=== PATIENT | male | born 1995 | race Two or more races ===

== ENCOUNTER 2020-11-27 16:35 | Inpatient (IN) | payer MEDICAID, OTHER ==
[~2020-11-27] VITALS: Ht 167.6 cm; Wt 100.9 kg
[2020-11-27] MEDS ORDERED: RISP4TAB63 PO (18:10)
[2020-11-27] MEDS ORDERED: HYDR50CA PO (18:12)
[2020-11-27 18:21] LABS: BASOPHILS % (AUTO) 0.3 % (0.0-2.0); EOSINOPHILS % (AUTO) 0.8 % (1.0-6.0); HEMATOCRIT 42.2 % (41-53); HEMOGLOBIN 13.8 g/dL (13.5-17.5); LYMPHOCYTES # (AUTO) 2.2 K/uL (1.0-4.8); LYMPHOCYTES % (AUTO) 26.6 % (22.0-44.0); MEAN CORPUSCULAR HEMOGLOBIN 28.2 pg (26.0-34.0); MEAN CORPUSCULAR HGB CONC 32.7 G/dL (31.0-37.0); MEAN CORPUSCULAR VOLUME 86 fL (80-100); MONOCYTES # (AUTO) 0.9 K/uL (0.1-1.0); MONOCYTES % (AUTO) 10.9 % (2.0-9.0); NEUTROPHILS # (AUTO) 5.1 K/uL (1.8-7.7); NEUTROPHILS % (AUTO) 61.4 % (40.0-70.0); RED CELL DISTRIBUTION WIDTH 14.6 % (11.5-14.5)
[2020-11-27 18:38] LABS: ANION GAP 8 mmol/L (8-16); CALCIUM, TOTAL 8.5 mg/dL (8.8-10.5); CARBON DIOXIDE 27 mmol/L (22-29); CHLORIDE 105 mmol/L (98-107); CREATININE 0.73 mg/dL (0.60-1.30); GLOMERULAR FILTR. RATE CALC > 60 mL/min (>60); GLUCOSE,RANDOM 94 mg/dL (70-110); POTASSIUM 3.2 mmol/L (3.5-5.1); SODIUM SERUM 140 mmol/L (136-145); UREA NITROGEN, BLOOD 10 mg/dL (7-18)
[2020-11-27 18:42] LABS: ALANINE AMINOTRANSFERASE 59 U/L (12-78); ALBUMIN 3.7 g/dL (3.4-5.0); ALKALINE PHOSPHATASE 75 U/L (46-116); ASPARTATE AMINOTRANSFERASE 45 U/L (15-37); BILIRUBIN,TOTAL 0.7 mg/dL (0.1-1.0); TOTAL PROTEIN, SERUM 6.8 g/dL (6.4-8.2)
[2020-11-27 18:52] LABS: PLATELET COUNT (AUTO) 153 K/uL (150-450); PLATELET MORPHOLOGY COMMENT LARGE PLTS PRESENT
[2020-11-27 19:10] LABS: COVID AG,FIA SOURCE NASOPHARYNGEAL
[2020-11-27] MEDS ORDERED: HALOPERIDOL 5 MG TABLET PO ONE (19:15)
[2020-11-27] MEDS ORDERED: DiphenhydrAMINE HCL 50 MG CAPSULE PO ONE (19:15)
[2020-11-27] MEDS ORDERED: POTASSIUM CHLORIDE 20 MEQ ER TABLET PO ONE (19:15)
[2020-11-27] MEDS ORDERED: LORazepam 2 MG TABLET PO ONE (19:15)
[2020-11-27 21:02] VITALS: BP 125/65
[2020-11-27] MEDS ORDERED: BACITRACIN 28 GM OINTMENT TP PRN (21:45)
[2020-11-27] MEDS ORDERED: ONDANSETRON HCL 4 MG TABLET PO PRN (21:45)
[2020-11-27] MEDS ORDERED: CloNIDine HCL 0.1 MG TABLET PO PRN (21:45)
[2020-11-27] MEDS ORDERED: ACETAMINOPHEN 325 MG TABLET PO PRN (21:45)
[2020-11-27] MEDS ORDERED: MAGNESIUM HYDROXIDE SUSPENSION 30 ML UDCUP PO PRN (21:45)
[2020-11-27] MEDS ORDERED: DOCUSATE SODIUM 100 MG CAPSULE PO PRN (21:45)
[2020-11-27] MEDS ORDERED: LOPERAMIDE HCL 2 MG CAPSULE PO PRN (21:45)
[2020-11-27] MEDS ORDERED: OMEPRAZOLE 20 MG CAPSULE PO PRN (21:45)
[2020-11-27] MEDS ORDERED: BENZOCAINE/MENTHOL LOZENGE PO PRN (21:45)
[2020-11-27] MEDS ORDERED: PETROLATUM,WHITE 28 GM JELLY TP PRN (21:45)
[2020-11-27] MEDS ORDERED: MAG HYDROX/AL HYDROX/SIMETH ES 30 ML SUSPENSION UDCUP PO PRN (21:45)
[2020-11-27] MEDS ORDERED: ALBUTEROL SULFATE HFA 90 MCG/PUFF 8 GM INHALER IH PRN (21:45)
[2020-11-28 02:01] LABS: APPEARANCE,URINE CLOUDY (CLEAR); GLUCOSE, URINE (UA) NEGATIVE (NEGATIVE); KETONES,URINE 40 mg/dL (NEGATIVE); LEUKOCYTE ESTERASE ,URINE NEGATIVE (NEGATIVE); NITRATE,URINE NEGATIVE (NEGATIVE); OCCULT BLOOD,URINE NEGATIVE (NEGATIVE); PROTEIN,URINE POS 1+ (NEGATIVE)
[2020-11-28 02:06] LABS: AMPHET/METH SCREEN,URINE NEGATIVE (NEGATIVE); BARBITURATE SCREEN, URINE NEGATIVE (NEGATIVE); BENZODIAZEPINES SCREEN,URINE NEGATIVE (NEGATIVE); CANNABINOID SCREEN,URINE NEGATIVE (NEGATIVE); COCAINE SCREEN,URINE NEGATIVE (NEGATIVE); METHADONE SCREEN, URINE NEGATIVE (NEGATIVE); OPIATE SCREEN,URINE NEGATIVE (NEGATIVE)
[2020-11-28 02:14] LABS: PHENCYCLIDINE SCREEN,URINE NEGATIVE (NEGATIVE)
[2020-11-28 02:18] LABS: BILIRUBIN,URINE PRELIM. POSITIVE (NEGATIVE)
[2020-11-28] MEDS: RisperiDONE 4 MG TABLET PO SCH ×2 (14:23→20:43)
[2020-11-28] MEDS: HALOPERIDOL 5 MG TABLET PO PRN (16:16)
[2020-11-28 16:39] VITALS: BP 125/64
[2020-11-28] MEDS: ZOLPIDEM TARTRATE 10 MG TABLET PO PRN (20:43)
[2020-11-29 08:33] VITALS: BP 147/99
[2020-11-29 08:57] LABS: POTASSIUM 4.1 mmol/L (3.5-5.1)
[2020-11-29] MEDS: RisperiDONE 4 MG TABLET PO SCH ×2 (09:50→20:28)
[2020-11-29 17:04] VITALS: BP 118/60
[2020-11-30 08:34] VITALS: BP 128/80
[2020-11-30] MEDS: RisperiDONE 4 MG TABLET PO SCH ×2 (08:46→20:20)
[2020-11-30 16:17] VITALS: BP 117/52
[2020-11-30] MEDS: LORazepam 2 MG TABLET PO PRN (17:13)
[2020-11-30] MEDS: HALOPERIDOL 5 MG TABLET PO PRN (17:14)
[2020-12-01 08:00] VITALS: BP 101/64
[2020-12-01] MEDS: RisperiDONE 4 MG TABLET PO SCH ×2 (08:31→20:19)
[2020-12-01 16:00] VITALS: BP 98/58
[2020-12-02 08:27] VITALS: BP 119/58
[2020-12-02] MEDS: RisperiDONE 4 MG TABLET PO SCH ×2 (09:10→20:22)
[2020-12-02] MEDS: LORazepam 2 MG TABLET PO PRN ×2 (09:10→20:22)
[2020-12-02 16:00] VITALS: BP 112/60
[2020-12-03 08:05] VITALS: BP 117/69
[2020-12-03] MEDS: RisperiDONE 4 MG TABLET PO SCH ×2 (10:22→20:15)
[2020-12-03 16:02] VITALS: BP 106/57
[2020-12-03] MEDS: HALOPERIDOL 5 MG TABLET PO PRN (16:58)
[2020-12-04 08:08] VITALS: BP 112/59
[2020-12-04] MEDS: RisperiDONE 4 MG TABLET PO SCH ×2 (08:49→20:23)
[2020-12-04 16:01] VITALS: BP 109/67
[2020-12-04] MEDS: HALOPERIDOL 5 MG TABLET PO PRN (16:33)
[2020-12-05] MEDS: RisperiDONE 4 MG TABLET PO SCH ×2 (08:20→20:14)
[2020-12-05 08:25] VITALS: BP 103/57
[2020-12-05 09:26] LABS: COVID AG,FIA SOURCE NASAL SWAB
[2020-12-05] MEDS: HALOPERIDOL 5 MG TABLET PO PRN ×2 (16:00→23:32)
[2020-12-05 16:55] VITALS: BP 138/82
[2020-12-05] MEDS: ZOLPIDEM TARTRATE 10 MG TABLET PO PRN (23:32)
[2020-12-06] MEDS: RisperiDONE 4 MG TABLET PO SCH ×2 (08:11→20:18)
[2020-12-06] MEDS: LORazepam 2 MG TABLET PO PRN (10:28)
[2020-12-06] MEDS: HALOPERIDOL 5 MG TABLET PO PRN ×2 (10:28→16:18)
[2020-12-06 11:14] VITALS: BP 105/68
[2020-12-06 16:05] VITALS: BP 112/85
[2020-12-06 20:00] VITALS: BP 119/80
[2020-12-06] MEDS: ZOLPIDEM TARTRATE 10 MG TABLET PO PRN (20:18)
[2020-12-07] MEDS: RisperiDONE 4 MG TABLET PO SCH ×2 (08:01→20:11)
[2020-12-07] MEDS: HALOPERIDOL 5 MG TABLET PO PRN ×3 (08:01→16:18)
[2020-12-07] MEDS: LORazepam 2 MG TABLET PO PRN ×3 (08:01→20:12)
[2020-12-07 08:08] VITALS: BP 101/50
[2020-12-07] MEDS: IBUPROFEN 600 MG TABLET PO PRN (13:48)
[2020-12-07 16:00] VITALS: BP 139/84
[2020-12-08 09:29] VITALS: BP 103/55
[2020-12-08] MEDS: RisperiDONE 4 MG TABLET PO SCH ×2 (09:37→20:08)
[2020-12-08] MEDS: LORazepam 2 MG TABLET PO PRN (11:36)
[2020-12-08] MEDS: HALOPERIDOL 5 MG TABLET PO PRN ×3 (11:36→20:09)
[2020-12-08] MEDS: IBUPROFEN 600 MG TABLET PO PRN (11:37)
[2020-12-08 17:19] VITALS: BP 102/69
[2020-12-08] MEDS: ZOLPIDEM TARTRATE 10 MG TABLET PO PRN (20:44)
[2020-12-09] MEDS: RisperiDONE 4 MG TABLET PO SCH ×2 (07:46→20:21)
[2020-12-09 08:00] VITALS: BP 128/80
[2020-12-09] MEDS: HALOPERIDOL 5 MG TABLET PO PRN ×2 (12:37→16:21)
[2020-12-09 16:20] VITALS: BP 116/68
[2020-12-09] MEDS: LORazepam 2 MG TABLET PO PRN (20:21)
[2020-12-10 08:34] VITALS: BP 103/50
[2020-12-10] MEDS: RisperiDONE 4 MG TABLET PO SCH (09:24)
[2020-12-10] MEDS ORDERED: RISP4TAB73 PO (12:51)
== END 2020-12-10 13:30 | disposition home or self-care (01) | DRG 750 ==
LOC: EDSEX 16:35 → EMS 16:35 → 3EC 20:00
PROVIDERS: ADMIT Psychiatry & Neurology Psychiatry; ATTEND Psychiatry & Neurology Psychiatry
DX: F20.0 Paranoid schizophrenia (principal); F17.210 Nicotine dependence, cigarettes, uncomplicated; G47.00 Insomnia, unspecified; K59.00 Constipation, unspecified; Z20.822 Contact with and (suspected) exposure to COVID-19
CPT/HCPCS: 80053; 80061; 80307; 84132; 84295; 85025; 99285; G0480; Q0162